=== PATIENT | female | born 1965 ===

== ENCOUNTER → 2020-09-03 09:42 | Outpatient (BNVA) | payer OTHER, MEDICAID, SELFPAY | PROVIDERS: Referring Provider Family Medicine; Visit Provider Psychiatry & Neurology Neurology | DX: G54.0 Brachial plexus disorders (principal); R20.0 Anesthesia of skin; I10 Essential (primary) hypertension | CPT/HCPCS: 95909; 95923; 99205 ==

== ENCOUNTER → 2020-11-06 12:31 | Outpatient (BNVA) | payer OTHER, MEDICAID, SELFPAY | PROVIDERS: Visit Provider Psychiatry & Neurology Neurology | DX: R20.0 Anesthesia of skin (principal); G54.0 Brachial plexus disorders | CPT/HCPCS: 99214 ==

== ENCOUNTER → 2020-11-13 13:05 | Outpatient (BNVA) | payer OTHER, MEDICAID, SELFPAY | PROVIDERS: Visit Provider Psychiatry & Neurology Neurology | DX: G90.09 Other idiopathic peripheral autonomic neuropathy (principal); R20.0 Anesthesia of skin; G54.0 Brachial plexus disorders | CPT/HCPCS: 95908 ==

== ENCOUNTER → 2021-06-03 12:16 | Outpatient (BNVA) | payer MEDICARE, MEDICAID, SELFPAY | PROVIDERS: Visit Provider Psychiatry & Neurology Neurology | DX: R20.0 Anesthesia of skin (principal); G54.0 Brachial plexus disorders; G60.9 Hereditary and idiopathic neuropathy, unspecified; R29.6 Repeated falls; I10 Essential (primary) hypertension | CPT/HCPCS: 99214 ==